=== PATIENT | female | born 2000 | race Caucasian/White ===

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

== ENCOUNTER 2019-01-08 18:25 | Emergency (ER) | payer OTHER ==
[~2019-01-08] VITALS: Ht 154.9 cm; Wt 46.7 kg
[~2019-01-08 18:25] MED LIST changes: +OMEPRAZOLE 20 M20 M1 PO
[2019-01-08] MEDS ORDERED: NABUMETONE 750750 M1 PO (20:53)
[2019-01-08 21:00] VITALS: BP 110/54
== END 2019-01-08 21:02 | disposition home or self-care (01) ==
LOC: M.ERS 18:25
DX: S70.02XA Contusion of left hip, initial encounter (principal); M25.562 Pain in left knee; W10.9XXA Fall (on) (from) unspecified stairs and steps, initial encounter; Y93.89 Activity, other specified; Y92.89 Other specified places as the place of occurrence of the external cause; Y99.8 Other external cause status

== ENCOUNTER 2019-08-03 09:54 | Emergency (ER) | payer OTHER ==
[~2019-08-03] VITALS: Ht 157.5 cm; Wt 54.4 kg
[~2019-08-03 09:54] MED LIST changes: +NABUMETONE 750750 M1 PO
[2019-08-03 11:10] VITALS: BP 98/55
== END 2019-08-03 11:10 | disposition home or self-care (01) ==
LOC: M.ERS 09:54
DX: M25.562 Pain in left knee (principal)

== ENCOUNTER 2019-09-15 19:50 | Emergency (ER) | payer BC ==
[~2019-09-15] VITALS: Ht 154.9 cm; Wt 54.4 kg
[2019-09-15 20:52] LABS: URINE BILIRUBIN NEGATIVE (Negative); URINE BLOOD NEGATIVE (Negative); URINE CLARITY CLEAR; URINE COLOR YELLOW; URINE GLUCOSE-RANDOM NEGATIVE (Negative); URINE KETONES NEGATIVE (Negative); URINE LEUKOCYTES-REFLEX NEGATIVE (Negative); URINE NITRITE-REFLEX NEGATIVE (Negative); URINE PROTEIN NEGATIVE (Negative); URINE UROBILINOGEN 0.2 E.U./dl (0.2-1.0)
[2019-09-15 21:01] LABS: AMP/METHAMP Negative (Negative); BARBITURATES Negative (Negative); BENZODIAZEPINES Negative (Negative); COCAINE Negative (Negative); METHADONE Negative (Negative); OPIATES Negative (Negative); PCP Negative (Negative); THC Negative (Negative)
[2019-09-15] MEDS ORDERED: TRAZODONE HCL50 MG PO ×2 (21:19→21:22)
[2019-09-15 22:29] LABS: ABSOLUTE EOSINOPHILS 0.1 thou/uL (0.0-0.7); ABSOLUTE LYMPHOCYTES 2.4 thou/uL (0.8-5.3); ABSOLUTE MONOCYTES 0.7 thou/uL (0.0-1.2); ABSOLUTE NEUTROPHILS 4.4 thou/uL (1.6-8.1); BASOPHILS 0.5 %; EOSINOPHILS 1.6 %; HEMATOCRIT 36.7 % (37.0-47.0); HEMOGLOBIN 12.5 gm/dL (12.0-15.0); LYMPHOCYTES 31.3 %; MCH 29.4 pg (26.0-34.0); MCHC 33.9 g/dL (28.0-37.0); MCV 86.6 fL (80.0-100.0); MONOCYTES 8.6 %; MPV 7.3 fl. (7.2-11.1); NUCLEATED RBCS 0 /100WBC; PLATELET COUNT* 284 thou/uL (150-400); RBC 4.24 mil/uL (4.20-5.00); RDW-CV 12.9 % (10.5-14.5); WBC 7.6 thou/uL (4.0-11.0)
[2019-09-15 22:33] LABS: CALCIUM 9.4 mg/dL (8.5-10.1); CREATININE 0.7 mg/dL (0.6-1.3); POTASSIUM 3.9 mmol/L (3.5-5.1)
[2019-09-15] MEDS ORDERED: XULANE PATCH1 EACH TRANSDERM (22:44)
[2019-09-15 22:58] VITALS: BP 107/53
== END 2019-09-15 22:59 | disposition home or self-care (01) ==
LOC: M.ERS 19:50
PROVIDERS: Emergency Medicine
DX: G43.909 Migraine, unspecified, not intractable, without status migrainosus (principal); F41.9 Anxiety disorder, unspecified